=== PATIENT | female | born 1965 | race Caucasian/White ===

== ENCOUNTER 2019-09-09 15:19 | Emergency (ER) | payer OTHER ==
[~2019-09-09] VITALS: Ht 162.6 cm; Wt 52.2 kg
[2019-09-09 15:41] VITALS: BP 143/77
[2019-09-09] MEDS ORDERED: DOCUSATE SODIUM LIQ 100 MG/10 ML UDC ONE (15:48)
[2019-09-09] MEDS: DOCUSATE SODIUM LIQ 100 MG/10 ML UDC NG ONE (15:56)
== END 2019-09-09 17:25 | disposition home or self-care (01) ==
LOC: ER 15:31
DX: H61.23 Impacted cerumen, bilateral (principal); Z88.0 Allergy status to penicillin